=== PATIENT | male | born 1950 | race Caucasian/White ===

== ENCOUNTER 2023-11-21 07:36 | Emergency (ER) | payer MEDICARE, SELFPAY ==
[2023-11-21 07:45] VITALS: BP 170/86; PULSE 62; RESP 16; TEMP 36.5; O2SAT 100; BMI 24.7
--- NOTE | 2023-11-21 07:58 | ED_ITS ---
Discharge Plan Disposition Patient Disposition: Home, Self-Care Chief Complaint: Eye Problems Prescriptions Prescriptions: No Action No Known Home Medications Referrals Follow up/Referrals: Justus Langford MD [Primary Care Provider] - See instructions Activity Restrictions/Add. Instructions Additional Instructions/Restrictions: Call your family doctor to establish care for this visit to the emergency department and schedule follow-up within 48 hours to ensure improvement. If you have any worsening of your condition or any other concerning signs or symptoms, return to the emergency department or your primary care doctor for further evaluation. If you are having further discomfort, you can also contact Dr. Salazar, operations vocational instructor, for further evaluation. Apply erythromycin ointment 3 times daily for the next 5 days. Clinical Impressions Clinical Impression: Foreign body, intraocular, right eye Discharge ED Provider: Ryan Diaz General Adult HPI General Chief complaint: Eye Problems Stated complaint: R eye pain Time Seen by Provider: 11/21/23 07:43 Mode of Arrival: Ambulatory Source of Information: Patient Limitations: No Limitations Description of Symptoms (Recalled from ER Triage Doc. by RN): pt reports he was using a cutting wheel 2d to cut a piece of metal. pt states he has felt like there is something in his eye the last 2d. pt states his used a wet qtip last night to try to sweep out a black spot. pt reports his last tetnus vaccine was <5yrs ago. History of Present Illness HPI narrative: Please note that above description of symptoms, in this electronic medical record under categorization of recalled from ER triage doctor by RN are reflective of an initial nursing assessment, however, is not reflective of my full history and physical exam that was personally taken and clarified. Consequentially, this preceding description of symptoms, which may include the patient's categorized chief complaint in the EMR, do not reflect my personal clinical impression, and the ultimate description of history of present illness and patient stated complaints should be deferred to this section of the note. Unless stated otherwise or congruent with this section of the note, additional signs, symptoms, or incongruence should be interpreted as inaccurate with my clinical impression. Related Data Home Medications Medication Instructions Recorded Confirmed No Known Home Medications 01/09/19 01/09/19 Allergies Allergy/AdvReac Type Severity Reaction Status Date / Time No Known Allergies Allergy Verified 11/21/23 07:51 [facility] Disclaimer: The information contained in this section may have been updated after the patient was seen, as this information can be updated by other users. Social History Smoking Status: Never smoker alcohol intake: never substance use type: denies use current occupational status: retired Travel in the last 8 weeks: None household members: spouse ROS Obtained: Yes All systems reviewed & no additional complaints except as documented Physical Exam General General appearance: alert and in no apparent distress Head Head exam: atraumatic and normocephalic Eye Eye exam: Present PERRL, EOMI and other (Conjunctival injection. No evidence of hyphema, proptosis, entrapment, conjunctival hemorrhage, pupillary changes, cellulitic change, or otherwise irregular ocular findings. Patient photophobic. Fluorescein exam with focal uptake around foreign body at 9 o'clock position overlying the iris..) ENT ENT exam: Present mucous membranes moist Neck Neck exam: Present normal inspection, full ROM and trachea midline Respiratory Respiratory exam: Absent respiratory distress, wheezes, stridor, accessory muscle use or prolonged expiratory phase Cardiovascular Cardiovascular exam: Present normal rhythm Abdominal Exam Abdominal exam: Present soft; Absent distention, tenderness, guarding, rebound or rigidity Extremities Exam Extremities exam: Absent edema Neurological Exam Neurological exam: Present alert, oriented X3, CN II-XII intact and normal gait; Absent motor sensory deficit Skin Skin exam: Present warm and dry; Absent diaphoresis or erythema Medical Decision Making Medical Records Medical records reviewed: Yes I reviewed the patient's medical records. Bandar Inquiry Pt receiving controlled substance: No Bandar was queried for this patient: No Vital Signs: 11/21/23 07:45 Temperature 97.7 F Temperature Source Oral Pulse Rate [Left] 62 Respiratory Rate 16 Blood Pressure [Right Arm] 170/86 H Blood Pressure Mean [Right Arm] 114 Blood Pressure Source [Right Arm] Automatic Cuff Blood Pressure Position [Right Arm] Sitting 02 Sat by Pulse Oximetry 100 Oxygen Delivery Method Room Air Medical Decision Narrative: 73-year-old male no relevant medical history up-to-date on tetanus as of 2 years ago presenting with foreign body in his right eye. Had foreign body in his eye 2 days ago when he was grinding metal. Had immediate pain, but was hoping it would come out by itself. Presents today because he is still having discomfort. No vision changes, fevers or chills, nausea or vomiting, or any other concerns.. History was obtained via conversation with patient. On arrival, patient hemodynamically stable, alert, oriented x4, appropriate, GCS 15, moving all extremities spontaneously, pupils equal and reactive to light. Full physical exam performed and significant for very well-appearing male no acute distress. Conjunctival injection on the right. Pupils are equal and reactive, patient in no acute distress. States that pain is worse when he blinks and looks toward the right, but not the left.Conjunctival injection. No evidence of hyphema, proptosis, entrapment, conjunctival hemorrhage, pupillary changes, cellulitic change, or otherwise irregular ocular findings. Patient photophobic. Fluorescein exam with focal uptake around foreign body at 9 o'clock position overlying the iris. Differential includes foreign body, rust ring, among others. Tetracaine used to numb eye. Foreign body and rust ring both removed with 25- gauge needle. On reevaluation, patient resting comfortably. Erythromycin ointment was provided in the emergency department and first dose was applied to eyeball. Given patient presentation, workup, history, this most likely represents metal foreign body with rust ring with adequate removal. Because patient at baseline without signs or symptoms of clinical decompensation, deemed appropriate for discharge. Results were relayed to patient who voiced understanding and were agreeable to outpatient management and follow up. I discussed my clinical impression with patient and answered all questions. At this time, the evidence for any other entities in the differential is insufficient to warrant any further testing or ED observation. This was e xplained as well. Advisory was given that persistent or worsening symptoms require further evaluation. I confirmed the understanding of this discussion. Shingles Roofer Helper disclaimer Much of this encounter note is an electronic carding doubler spoken language to printed text. Electronic carding doubler of the spoken language may permit errors. Although I have reviewed the note, some errors may still exist. Procedures Eye Exam/FB Removal Location: eye (R) Topical anesthetic used: tetracaine Fluorescein Stick(s) used: Yes Time Out performed: No Procedure performed under: direct visualization with magnification Foreign body: metal Evidence of corneal penetration: Yes Technique: irrigation and needle Post-procedure medication: ophthalmic antibiotic Patient tolerated procedure: well Complications: other (Foreign body completely removed as well as rust ring) Critical Care Critical Care Time Critical Care Time: No
[2023-11-21 08:07] VITALS: BP 133/93; PULSE 48; RESP 13; TEMP 36.7
== END 2023-11-21 08:08 | disposition home or self-care (01) ==
PROVIDERS: Emergency Provider Emergency Medicine; PCP Family Medicine
DX: T15.01XA Foreign body in cornea, right eye, initial encounter; W31.1XXA Contact with metalworking machines, initial encounter; W44.E0XA Non-magnetic metal object unspecified, entering into or through a natural orifice, initial encounter; H16.021 Ring corneal ulcer, right eye
CPT/HCPCS: 65400; 99284